=== PATIENT | female | born 1975 | race Caucasian/White ===

== ENCOUNTER 2018-02-28 11:35 | Emergency (ER) | payer MEDICAID ==
[~2018-02-28] VITALS: Ht 149.9 cm; Wt 37.3 kg
[~2018-02-28 11:35] MED LIST: KLOR-CON 1010 MEQ PO; LAMICTAL100 MG PO; TOPAMAX50 MG PO; ULTRAM50 MG PO; ZOFRAN4 MG PO
[2018-02-28 11:37] VITALS: BP 146/96; Ht 149.9 cm; Wt 37.3 kg
== END 2018-02-28 19:35 | disposition home or self-care (01) ==
LOC: D.ER 11:35
DX: F32.9 Major depressive disorder, single episode, unspecified (principal); G40.909 Epilepsy, unspecified, not intractable, without status epilepticus; R45.851 Suicidal ideations

== ENCOUNTER 2018-03-30 16:55 | Emergency (ER) | payer MEDICAID ==
[~2018-03-30] VITALS: Ht 149.9 cm; Wt 37.3 kg
[2018-03-30 17:13] VITALS: Ht 149.9 cm; Wt 37.3 kg
[2018-03-30] MEDS ORDERED: BACTRIM 400-801 TAB PO (18:23)
[2018-03-30] MEDS ORDERED: VOLTAREN75 MG PO (18:23)
[2018-03-30 19:02] VITALS: BP 119/73
== END 2018-03-30 19:03 | disposition home or self-care (01) ==
LOC: D.ER 16:55
DX: L03.811 Cellulitis of head [any part, except face] (principal); G40.909 Epilepsy, unspecified, not intractable, without status epilepticus

== ENCOUNTER 2018-04-12 20:27 | Emergency (ER) | payer MEDICAID ==
[~2018-04-12] VITALS: Ht 149.9 cm; Wt 45.5 kg
[~2018-04-12 20:27] MED LIST changes: +BACTRIM 400-801 TAB PO; +VOLTAREN75 MG PO
[2018-04-12 20:33] VITALS: Ht 149.9 cm; Wt 45.5 kg
[2018-04-12] MEDS ORDERED: VIBRAMYCIN 100100 MG PO (21:52)
[2018-04-12] MEDS ORDERED: IBUPROFEN800 MG PO (21:52)
[2018-04-12 23:03] VITALS: BP 123/87
== END 2018-04-12 23:03 | disposition home or self-care (01) ==
LOC: D.ER 20:27
DX: L03.811 Cellulitis of head [any part, except face] (principal); R11.0 Nausea

== ENCOUNTER 2018-07-28 22:22 | Emergency (ER) | payer MEDICAID ==
[~2018-07-28] VITALS: Ht 149.9 cm; Wt 37.7 kg
[~2018-07-28 22:22] MED LIST changes: +IBUPROFEN800 MG PO; +VIBRAMYCIN 100100 MG PO
[2018-07-28 22:28] VITALS: Ht 149.9 cm; Wt 37.7 kg
[2018-07-28 22:44] LABS: BASOPHILS 0.1 % (0-2); EOSINOPHILS 3.1 % (0-7); HEMATOCRIT 37.7 % (36.0-48.0); HEMOGLOBIN 12.7 g/dL (12-16); IMMATURE GRANULOCYTES 0.1 % (0-5); LYMPHOCYTES 25.5 % (15-50); MCH 30.2 pg (26.0-34.0); MCHC 33.7 g/dL (31.0-37.0); MCV 89.5 fL (80.0-100.0); MONOCYTES 10.8 % (2-11); NEUTROPHILS 60.4 % (40-80); PLATELET COUNT 248 10x3/uL (130-400); RBC 4.21 10x6/uL (4.00-5.40)
[2018-07-28 22:56] LABS: ALBUMIN 3.7 g/dL (3.4-5.0); ALKALINE PHOSPHATASE 68 U/L (46-116); ALT (SGPT) 38 U/L (10-68); BILIRUBIN - TOTAL 0.22 mg/dL (0.2-1.3); CALC OSMOLALITY 276 mosm/kg (275-300); CALCIUM 8.4 mg/dL (8.5-10.1); CARBON DIOXIDE 28.1 mmol/L (21.0-32.0); CHLORIDE - SERUM 101 mmol/L (98-107); CREATININE - SERUM 0.6 mg/dL (0.6-1.3); GLUCOSE 96 mg/dL (74-106); POTASSIUM - SERUM 3.9 mmol/L (3.5-5.1); PROTEIN - SERUM 7.3 g/dL (6.4-8.2); SODIUM 138 mmol/L (136-145); UREA NITROGEN 15 mg/dL (7-18); eGFR NON AFRICAN AMERICAN > 90 mL/min (90-120)
[2018-07-28 23:02] LABS: APTT 30.3 SECONDS (22.8-39.4); INR 1.02 (0.85-1.17); PROTIME 12.9 SECONDS (11.6-15.0)
[2018-07-28 23:08] LABS: AMYLASE - SERUM 109 U/L (25-115); CKMB 0.8 U/L (0.0-3.6); CREATINE KINASE 70 UL (21-215); LIPASE 466 U/L (73-393); MAGNESIUM - SERUM 1.9 mg/dL (1.8-2.4); TROPONIN-I < 0.017 ng/mL (0.000-0.060)
[2018-07-29] MEDS ORDERED: ZANTAC300 MG PO (02:16)
[2018-07-29] MEDS ORDERED: LEVSIN/ANASP0.125 MG PO (02:16)
[2018-07-29 02:31] VITALS: BP 115/74
== END 2018-07-29 02:31 | disposition home or self-care (01) ==
LOC: D.ER 22:22
PROVIDERS: Family Medicine
DX: R07.89 Other chest pain (principal)

== ENCOUNTER 2018-08-06 19:47 | Emergency (ER) | payer MEDICAID ==
[~2018-08-06] VITALS: Ht 149.9 cm; Wt 37.6 kg
[~2018-08-06 19:47] MED LIST changes: +LEVSIN/ANASP0.125 MG PO; +ZANTAC300 MG PO
[2018-08-06 19:54] VITALS: Ht 149.9 cm; Wt 37.6 kg
[2018-08-06 23:00] VITALS: BP 122/82
== END 2018-08-06 23:00 | disposition short-term general hospital (02) ==
LOC: D.ER 19:47
DX: S61.412A Laceration without foreign body of left hand, initial encounter (principal); S01.511A Laceration without foreign body of lip, initial encounter; S52.502B Unspecified fracture of the lower end of left radius, initial encounter for open fracture type I or II; W54.0XXA Bitten by dog, initial encounter

== ENCOUNTER 2018-10-04 19:14 | Emergency (ER) | payer MEDICAID ==
[~2018-10-04] VITALS: Ht 149.9 cm; Wt 35.5 kg
[2018-10-04 19:35] VITALS: Ht 149.9 cm; Wt 35.5 kg
[2018-10-04] MEDS ORDERED: BACITRACIN3.5 GM RIGHT EYE (20:08)
[2018-10-04] MEDS ORDERED: KEFLEX500 MG PO (20:08)
[2018-10-04] MEDS ORDERED: BACITRACIN 15 G15 GM TOPICAL (20:13)
[2018-10-05 00:57] VITALS: BP 127/97
== END 2018-10-04 20:40 | disposition home or self-care (01) ==
LOC: D.ER 19:14
DX: T24.001A Burn of unspecified degree of unspecified site of right lower limb, except ankle and foot, initial encounter (principal); X18.XXXA Contact with other hot metals, initial encounter; Y93.89 Activity, other specified; Y92.89 Other specified places as the place of occurrence of the external cause; L08.89 Other specified local infections of the skin and subcutaneous tissue

== ENCOUNTER 2019-01-24 13:04 | Emergency (ER) | payer MEDICAID ==
[~2019-01-24] VITALS: Ht 149.9 cm; Wt 37.3 kg
[~2019-01-24 13:04] MED LIST changes: +BACITRACIN 15 G15 GM TOPICAL; +BACITRACIN3.5 GM RIGHT EYE; +KEFLEX500 MG PO
[2019-01-24 13:15] VITALS: Ht 149.9 cm; Wt 37.3 kg
[2019-01-24 13:42] LABS: BASOPHILS 0.4 % (0-2); EOSINOPHILS 2.4 % (0-7); HEMATOCRIT 39.9 % (36.0-48.0); HEMOGLOBIN 13.2 g/dL (12-16); IMMATURE GRANULOCYTES 0.3 % (0-5); LYMPHOCYTES 18.1 % (15-50); MCH 29.9 pg (26.0-34.0); MCHC 33.1 g/dL (31.0-37.0); MCV 90.3 fL (80.0-100.0); MEAN PLATELET VOLUME 8.1 fL (7.4-10.4); MONOCYTES 8.4 % (2-11); NEUTROPHILS 70.4 % (40-80); PLATELET COUNT 296 10x3/uL (130-400); RBC 4.42 10x6/uL (4.00-5.40); RDW 13.4 % (11.5-14.5)
[2019-01-24 13:55] LABS: ALBUMIN 3.9 g/dL (3.4-5.0); ALKALINE PHOSPHATASE 63 U/L (46-116); ALT (SGPT) 17 U/L (10-68); BILIRUBIN - TOTAL 0.22 mg/dL (0.2-1.3); CALC OSMOLALITY 281 mosm/kg (275-300); CALCIUM 8.8 mg/dL (8.5-10.1); CARBON DIOXIDE 23.8 mmol/L (21.0-32.0); CHLORIDE - SERUM 105 mmol/L (98-107); CREATININE - SERUM 0.6 mg/dL (0.6-1.3); GLUCOSE 105 mg/dL (74-106); POTASSIUM - SERUM 3.5 mmol/L (3.5-5.1); PROTEIN - SERUM 7.9 g/dL (6.4-8.2); SODIUM 142 mmol/L (136-145); UREA NITROGEN 11 mg/dL (7-18); eGFR NON AFRICAN AMERICAN > 90 mL/min (90-120)
[2019-01-24 14:02] LABS: APTT 28.2 SECONDS (22.8-39.4); INR 1.02 (0.85-1.17); PROTIME 12.9 SECONDS (11.6-15.0)
[2019-01-24 14:07] LABS: CKMB 1.3 U/L (0.0-3.6); CREATINE KINASE 95 UL (21-215); MAGNESIUM - SERUM 1.9 mg/dL (1.8-2.4); TROPONIN-I < 0.017 ng/mL (0.000-0.060)
[2019-01-24 15:50] LABS: APPEARANCE CLEAR (CLEAR); BILIRUBIN NEGATIVE (NEGATIVE); COLOR YELLOW (YELLOW); GLUCOSE NEGATIVE (NEGATIVE); KETONE NEGATIVE (NEGATIVE); NITRITE NEGATIVE (NEGATIVE); PROTEIN NEGATIVE (NEGATIVE); UROBILINOGEN NORMAL (NORMAL)
[2019-01-24 15:59] LABS: UDS - AMPHET NEGATIVE QUAL (NEGATIVE); UDS - BARB NEGATIVE QUAL (NEGATIVE); UDS - BENZO NEGATIVE QUAL (NEGATIVE); UDS - COCAINE NEGATIVE QUAL (NEGATIVE); UDS - OPIATE NEGATIVE QUAL (NEGATIVE); UDS - PCP NEGATIVE QUAL (NEGATIVE); UDS - THC NEGATIVE QUAL (NEGATIVE)
[2019-01-24 17:29] LABS: CREATINE KINASE 85 UL (21-215)
[2019-01-24 17:30] LABS: TROPONIN-I < 0.017 ng/mL (0.000-0.060)
[2019-01-24 19:27] VITALS: BP 110/80
== END 2019-01-24 18:02 | disposition home or self-care (01) ==
LOC: D.ER 13:04
PROVIDERS: Family Medicine
DX: F41.9 Anxiety disorder, unspecified (principal)

== ENCOUNTER 2019-05-19 17:12 | Emergency (ER) | payer MEDICAID ==
[~2019-05-19] VITALS: Ht 149.9 cm; Wt 37.7 kg
[2019-05-19 17:26] VITALS: Ht 149.9 cm; Wt 37.7 kg
[2019-05-19] MEDS ORDERED: DICLOFENAC SODI50 MG PO (19:16)
[2019-05-19 19:39] LABS: BASOPHILS 0.2 % (0-2); EOSINOPHILS 2.4 % (0-7); HEMATOCRIT 40.4 % (36.0-48.0); HEMOGLOBIN 13.6 g/dL (12-16); IMMATURE GRANULOCYTES 0.1 % (0-5); LYMPHOCYTES 18.7 % (15-50); MCH 30.2 pg (26.0-34.0); MCHC 33.7 g/dL (31.0-37.0); MCV 89.6 fL (80.0-100.0); MONOCYTES 7.3 % (2-11); NEUTROPHILS 71.3 % (40-80); PLATELET COUNT 295 10x3/uL (130-400); RBC 4.51 10x6/uL (4.00-5.40); RDW 12.9 % (11.5-14.5); WBC 9.2 10x3/uL (4.8-10.8)
[2019-05-19 19:54] LABS: CALC OSMOLALITY 282 mosm/kg (275-300); CALCIUM 9.1 mg/dL (8.5-10.1); CARBON DIOXIDE 31.1 mmol/L (21.0-32.0); CHLORIDE - SERUM 102 mmol/L (98-107); CREATININE - SERUM 0.7 mg/dL (0.6-1.3); GLUCOSE 95 mg/dL (74-106); POTASSIUM - SERUM 4.1 mmol/L (3.5-5.1); SODIUM 142 mmol/L (136-145); UREA NITROGEN 12 mg/dL (7-18); eGFR NON AFRICAN AMERICAN > 90 mL/min (90-120)
[2019-05-19 20:05] LABS: ALKALINE PHOSPHATASE 66 U/L (30-120); ALT (SGPT) 60 U/L (10-68); BILIRUBIN - TOTAL 0.27 mg/dL (0.2-1.3); PRO BNP 21 pg/mL (0-125); PROTEIN - SERUM 8.1 g/dL (6.4-8.2)
[2019-05-19 20:06] LABS: C-REACTIVE PROTEIN < 0.9 mg/dL (0.0-0.9); TROPONIN-I < 0.017 ng/mL (0.000-0.060)
[2019-05-19 20:34] VITALS: BP 118/73
== END 2019-05-19 20:34 | disposition home or self-care (01) ==
LOC: D.ER 17:12
PROVIDERS: Family Medicine
DX: R07.89 Other chest pain (principal); R06.02 Shortness of breath

== ENCOUNTER 2019-11-30 01:59 | Emergency (ER) | payer MEDICAID ==
[~2019-11-30] VITALS: Ht 149.9 cm; Wt 40.9 kg
[~2019-11-30 01:59] MED LIST changes: +DICLOFENAC SODI50 MG PO
[2019-11-30 02:03] VITALS: Ht 149.9 cm; Wt 40.9 kg
[2019-11-30 02:43] LABS: BASOPHILS 0.3 % (0-2); HEMATOCRIT 41.3 % (36.0-48.0); HEMOGLOBIN 13.7 g/dL (12-16); IMMATURE GRANULOCYTES 0.1 % (0-5); MCHC 33.2 g/dL (31.0-37.0); MCV 90.4 fL (80.0-100.0); MEAN PLATELET VOLUME 8.2 fL (7.4-10.4); MONOCYTES 6.2 % (2-11); NEUTROPHILS 62.4 % (40-80); PLATELET COUNT 290 10x3/uL (130-400); RBC 4.57 10x6/uL (4.00-5.40); RDW 12.7 % (11.5-14.5)
[2019-11-30 02:45] LABS: BILIRUBIN NEGATIVE (NEGATIVE); GLUCOSE NEGATIVE (NEGATIVE); KETONE NEGATIVE (NEGATIVE); NITRITE NEGATIVE (NEGATIVE); UROBILINOGEN NORMAL (NORMAL)
[2019-11-30 02:49] LABS: UDS - AMPHET NEGATIVE QUAL (NEGATIVE); UDS - BARB NEGATIVE QUAL (NEGATIVE); UDS - BENZO NEGATIVE QUAL (NEGATIVE); UDS - COCAINE NEGATIVE QUAL (NEGATIVE); UDS - OPIATE NEGATIVE QUAL (NEGATIVE); UDS - PCP NEGATIVE QUAL (NEGATIVE); UDS - THC POSITIVE QUAL (NEGATIVE)
[2019-11-30 03:11] LABS: ANION GAP 11.9 mmol/L (8-16); CARBON DIOXIDE 31.5 mmol/L (21.0-32.0); CREATININE - SERUM 1.1 mg/dL (0.6-1.3); POTASSIUM - SERUM 3.4 mmol/L (3.5-5.1)
[2019-11-30 03:16] LABS: ALBUMIN 4.3 g/dL (3.4-5.0); BILIRUBIN - TOTAL 0.28 mg/dL (0.2-1.3); MAGNESIUM - SERUM 1.8 mg/dL (1.8-2.4)
[2019-11-30 03:50] VITALS: BP 107/70
== END 2019-11-30 03:50 | disposition home or self-care (01) ==
LOC: D.ER 01:59
PROVIDERS: Emergency Medicine
DX: T40.7X1A Poisoning by cannabis (derivatives), accidental (unintentional), initial encounter (principal); R55 Syncope and collapse; Z86.69 Personal history of other diseases of the nervous system and sense organs

== ENCOUNTER 2020-07-25 14:58 | Emergency (ER) | payer MEDICAID ==
[~2020-07-25] VITALS: Ht 149.9 cm; Wt 37.7 kg
[2020-07-25 15:01] VITALS: BP 128/93; Ht 149.9 cm; Wt 37.7 kg
[2020-07-25] MEDS ORDERED: BUTALB-APAP-CA1 EACH PO (16:45)
[2020-07-25] MEDS ORDERED: MUPIROCIN22 GM TOPICAL (16:45)
== END 2020-07-25 17:10 | disposition home or self-care (01) ==
LOC: D.ER 14:58
DX: S09.90XA Unspecified injury of head, initial encounter (principal); S01.81XA Laceration without foreign body of other part of head, initial encounter; W22.8XXA Striking against or struck by other objects, initial encounter; Y93.9 Activity, unspecified; Y92.9 Unspecified place or not applicable